=== PATIENT | female | born 1970 | race Caucasian/White ===

== ENCOUNTER 2016-07-27 21:58 | Emergency (ER) | payer BC, OTHER ==
[2016-07-27 22:19] VITALS: BP 110/52; BMI 32.4
--- NOTE | 2016-07-27 23:19 | DR.URIAD ---
HPI - Time Seen Time seen: 23:15 - PCP Primary Care Physician: NFD - Complaint Chief Complaint Doctors Comments: Patient states that her migraine started earlier today not relieved by ibuprofen 800mg x 2. Headache is usually controlled by imitrex but did not take. Chief Complaint:: "Im aching all over and having chills and bad headache. N/V beacause of headache." Self Treatment fo Chief Complaint: Motrin 800mg @ 1930 - Source History Provided: Patient - Mode of Arrival Mode of Arrival: Ambulatory - Timing Onset of Chief Complaint: 07/27/16 PMH - PMH Past Medical History: Yes Past Medical History: Anemia, Asthma, Migraines Past Surgical History: Yes Surgical History: Cholecystectomy, Hysterectomy, Weight Loss Surgery - Family History History of Family Medical Conditions: Yes Family Medical History: Diabetes Mellitus, Cancer, Hypertension - Social History Do you use any recreational Drugs:: No - infectious screening Have you traveled outside the country in the last 6 months?: No ROS - Review of Systems Constitutional: Chills Eyes: No Symptoms Reported ENTM: No Symptoms Reported Respiratoy: No Symptoms Reported Cardiovascular: No Symptoms Reported Gastrointestinal/Abdominal: No Symptoms Reported Genitourinary: No Symptoms Reported Neurological: No Symptoms Reported Musculoskeletal: No Symptoms Reported Integumentary: No Symptoms Reported Hematologic/Lymphatic: No Symptoms Reported Endocrine: No Symptoms Reported Psychiatric: No Symptoms Reported All Other Systems: Reviewed and Negative PE - Vital Signs Vitals: Temperature 97.6 F Pulse Rate 67 Respiratory Rate 18 Blood Pressure [Right Arm] 98/50 Blood Pressure 110/52 O2 Sat by Pulse Oximetry 100 - General Limitations: No Limitations General Appearance: Alert, In No Apparent Distress - Head Head Exam: Normal Inspection, Atraumatic - Eyes Eye exam: Normal Appearance, PERRL, EOMI - ENT ENT Exam: Normal Exam External Ear Exam: Normal External Inspection TM/Canal Exam: Bilateral Normal Nose Exam: Normal Nose Exam Nasal Speculum Exam: Bilateral Normal Mouth Exam: Normal Inspection Throat Exam: Normal Inspection - Neck Neck Exam: Normal Inspection - Chest Chest Inspection: Normal Inspection - Respiratory Respiratory Exam: Normal Lung Sounds Bilat Respiratory Exam: Bilateral Clear to Auscultation - Cardiovascular Cardiovascular Exam: Regular Rate, Normal Rhythm - Abdominal Exam Abdominal Exam: Normal Inspection, Normal Bowel Sounds Abdominal Tenderness: negative: RUQ, RLQ, LUQ, LLQ, Epigastrium, Suprapubic, Diffuse, Mild, Moderate, Severe, Other - Extremeties Extremities Exam: Normal Inspection, Full ROM - Back Back Exam: Normal Inspection - Neurologic Neurological Exam: Alert, Oriented X3, CN II-XII Intact - Psychiatric Psychiatric Exam: Normal Affect, Normal Mood - Skin Skin Exam: Warm, Dry, Intact - Diagnosis Discharge Problem: Migraine Qualifiers: Migraine type: without aura Status migrainosus presence: without status migrainosus Intractability: not intractable Qualified Code(s): G43.009 - Migraine without aura, not intractable, without status migrainosus - Discharge Plan Condition: Stable - Follow ups/Referrals Follow ups/Referrals: NFD,None [Primary Care Provider] - 3 days - Instructions Instructions: Migraine Headache, [id number], Nausea, Adult, [id number]
[2016-07-27] MEDS ORDERED: IMITREX INJ SC ONE ×2 (23:21→23:23)
[2016-07-28] MEDS ORDERED: ZOFRAN SYRUP 4 MG UDC PO ONE (00:28)
[2016-07-28] MEDS ORDERED: ZOFRAN SYRUP 4 MG UDC ONE (00:31)
== END 2016-07-28 00:36 | disposition home or self-care (01) ==
LOC: ER 22:23
DX: G43.009 Migraine without aura, not intractable, without status migrainosus (principal)
CPT/HCPCS: 87502; 87503; 96372; 99282; J3030; Q0162